=== PATIENT | female | born 1965 | race Caucasian/White ===

== ENCOUNTER → 2020-07-12 01:07 | Outpatient (CLI) | payer OTHER, SELFPAY ==
[2020-07-12 19:48] LABS: SARS-CoV-2 RNA PCR Negative
== END ==
PROVIDERS: PCP Family Medicine; Visit Provider Internal Medicine Gastroenterology
DX: Z01.812 Encounter for preprocedural laboratory examination (principal); Z20.822 Contact with and (suspected) exposure to COVID-19
CPT/HCPCS: C9803; U0003; U0005

== ENCOUNTER 2020-07-15 00:51 | Day surgery (SDC) | payer OTHER, SELFPAY ==
[2020-07-03 08:53] VITALS: BMI 38.2
[2020-07-15 11:45] VITALS: BP 132/90; PULSE 62; RESP 18; TEMP 36.3; O2SAT 100
[2020-07-15] MEDS: LACTATED RINGERS 1,000 ML 150 ML IV CONT (11:52)
[2020-07-15 12:01] LABS: Glucose Point of Care 96 (65-105)
--- NOTE | 2020-07-15 12:02 | SUR.PREOP ---
Patient reports IUD fro 11 years. OK for no urine test per anesthesia.
--- NOTE | 2020-07-15 12:12 | WPDANESEPPF ---
Anes - Initial Pre Proc Eval Procedure: Operation Date: 07/15/20 12:45 Proposed Procedures p Screening Colonoscopy - Thomas Byers MD Date/Time: 07/15/20 12:12 Surgeon: Thomas Byers MD Pre Op Diagnosis: Neoplasm Screening Patient Data Age: 54 Gender: F Height: 5 ft 8 in Weight: 116.5 kg Last Vital Signs Temp 36.3 C L 07/15/20 11:45 Pulse 62 07/15/20 11:45 Resp 18 07/15/20 11:45 BP 132/90 07/15/20 11:45 Pulse Ox 100 07/15/20 11:45 Allergies Allergy/AdvReac Type Severity Reaction Status Date / Time Penicillins Allergy Unknown rash Verified 07/15/20 11:44 cariprazine [From Vraylar] AdvReac Severe sedation Verified 07/15/20 11:44 liraglutide [From Saxenda] AdvReac Intermediate gi Verified 07/15/20 11:44 intolerance Home Medications Medication Instructions Recorded Confirmed Type bupropion HCl 150 mg 24 hr tablet, 150 mg PO QAM #90 tablet 05/24/19 07/15/20 Rx extended release adalimumab 40 mg/0.8 mL See Rx Instructions SUB-Q .COMPLEX 05/30/19 07/15/20 History subcutaneous syringe kit fluoxetine 20 mg capsule 20 mg PO DAILY #90 cap 11/20/19 07/15/20 Rx alprazolam 0.25 mg tablet 0.25 mg PO .tid prn #90 tablet 03/04/20 07/15/20 Rx spironolactone 50 mg tablet See Rx Instructions .ROUTE 05/30/20 07/15/20 Rx .COMPLEX #180 tablet Laboratory Tests 07/15/20 11:49 POC Capillary Glucose 96 mg/dl mg/dl (65-105) Patient hx anesthesia problems: none Family hx anesthesia problems: none PMFSH Past Medical History Medical History Chronic anxiety Depression Diabetes Seropositive rheumatoid arthritis of multiple joints Social History Social History Smoking status: Never smoker Living arrangements: with family Gender identity (if verbalized by the patient): Female Spiritual care concerns: No Anes - Eval Final PreProcedure Day of Procedure 07/15/20 12:12 Patient weight: obese Heart: regular rate and rhythm Lungs: clear to auscultation Airway: Mallampati scale class II Neurological: alert and oriented Last oral intake: >/= 8 hours ASA classification: III Emergent: no Anesthetic plan: proceed Anesthesia type and monitoring: general GIVS and standard monitoring Informed Consent: The patient's anesthetic plan and its attendant risks and benefits were discussed with the patient/family/POA. Questions were solicited and answers provided to the satisfaction of the patient/family/POA.
--- NOTE | 2020-07-15 12:49 | PM.HPGS ---
History of Present Illness History of Present Illness Consent: Risks, benefits, and alternatives have been discussed and questions answered. Patient agrees to proceed with procedure. Chief complaint: Neoplasm Screening Narrative: Annie Ramos is a 54 year old female here for first screening colonoscopy Review of Systems Constitutional: Constitutional: Denies headache(s) and Denies weakness Eyes: Eyes: Denies blurry vision ENT: Reports Normal hearing present, Denies headache(s) and Denies neck pain Cardiovascular: Cardiovascular: Denies chest pain and Denies dyspnea Respiratory: Respiratory: Denies dyspnea Gastrointestinal: Gastrointestinal: Reports no additional gastrointestinal complaints Genitourinary: Genitourinary: Denies dysuria Musculoskeletal: Musculoskeletal: Denies neck pain Integumentary/Breasts: Skin/Breast: Denies dry skin Neurologic: Reports Normal hearing present, Denies headache(s) and Denies weakness Psychiatric: Psychiatric: Denies anxiety Endocrine: Endocrine: Denies change in body appearance Hematologic/Lymphatic: Hematologic/Lymphatic: Denies easy bleeding Allergic/Immunologic: Allergic/Immunologic: Denies urticaria PMFSH Past Medical History Medical History Chronic anxiety Depression Diabetes Seropositive rheumatoid arthritis of multiple joints Social History Social History Smoking status: Never smoker Living arrangements: with family Gender identity (if verbalized by the patient): Female Spiritual care concerns: No Meds Home Medications and Allergies Home Medications Medication Instructions Recorded Confirmed Type bupropion HCl 150 mg 24 hr tablet, 150 mg PO QAM #90 tablet 05/24/19 07/15/20 Rx extended release adalimumab 40 mg/0.8 mL See Rx Instructions SUB-Q .COMPLEX 05/30/19 07/15/20 History subcutaneous syringe kit fluoxetine 20 mg capsule 20 mg PO DAILY #90 cap 11/20/19 07/15/20 Rx alprazolam 0.25 mg tablet 0.25 mg PO .tid prn #90 tablet 03/04/20 07/15/20 Rx spironolactone 50 mg tablet See Rx Instructions .ROUTE 05/30/20 07/15/20 Rx .COMPLEX #180 tablet Allergies Allergy/AdvReac Type Severity Reaction Status Date / Time Penicillins Allergy Unknown rash Verified 07/15/20 11:44 cariprazine [From Vraylar] AdvReac Severe sedation Verified 07/15/20 11:44 liraglutide [From Saxenda] AdvReac Intermediate gi Verified 07/15/20 11:44 intolerance Vital Signs Vital Signs - 24 hr 07/15/20 11:45 Temperature 97.4 F L Pulse Rate 62 Respiratory Rate 18 Blood Pressure 132/90 Pulse Oximetry 100 Exam Const: General: comfortable and no acute distress HENMT: General nose exam: Normal nares present Eyes: General: appearance normal, both eyes and all related structures Neck: Neck: no JVD Resp: Auscultation: clear to auscultation bilaterally Cardio: Rate: regular rate Rhythm: regular rhythm GI: Inspection: non-distended GI Palp: Yes Soft to palpation Skin: General skin exam: normal color Neuro: General: gait normal Speech: normal speech Extrem: General: normal to inspection Psych: Mental Status: mental status grossly normal Assessment and Plan Assessment and plan (1) Colon cancer screening: Code(s): Z12.11 - Encounter for screening for malignant neoplasm of colon Status: Acute Assessment and Plan: proceed with colonoscopy
[2020-07-15 13:15] VITALS: BP 134/63; PULSE 59; RESP 14; O2SAT 99
[2020-07-15 13:25] VITALS: BP 143/71; PULSE 56; RESP 20; O2SAT 98
[2020-07-15 13:35] VITALS: BP 154/84; PULSE 58; RESP 23; O2SAT 99
== END 2020-07-15 13:50 | disposition home or self-care (01) ==
PROVIDERS: PCP Family Medicine; Visit Provider Internal Medicine Gastroenterology
PROC: 0DJD8ZZ Inspection of Lower Intestinal Tract, Via Natural or Artificial Opening Endoscopic (ICD-10-PCS; CPT 45378; principal; 2020-07-15 12:45)
DX: Z12.11 Encounter for screening for malignant neoplasm of colon (principal); K63.5 Polyp of colon; K57.30 Diverticulosis of large intestine without perforation or abscess without bleeding; K64.8 Other hemorrhoids; E11.9 Type 2 diabetes mellitus without complications; F41.8 Other specified anxiety disorders; M05.89 Other rheumatoid arthritis with rheumatoid factor of multiple sites; E66.9 Obesity, unspecified; Z68.39 Body mass index [BMI] 39.0-39.9, adult
CPT/HCPCS: 45385; 82948; 88305; J7120

== ENCOUNTER 2021-11-27 14:03 | Outpatient (CLI) | payer OTHER, SELFPAY ==
--- NOTE | ~2021-11-27 | MM_ITS ---
EXAMINATION: MM screening [facility] BI w [facility] HISTORY: Screening TECHNIQUE: Craniocaudal and mediolateral oblique 3-D tomosynthesis images were obtained and synthetic 2-D images were generated. CAD analysis was submitted and interpreted. COMPARISON: Comparison to multiple prior studies sequentially, with oldest reviewed study dated 02/07. BREAST PARENCHYMAL COMPOSITION: There are scattered areas of fibroglandular density. FINDINGS: There is no evidence of suspicious mass, calcification, or architectural distortion to sugg est malignancy in either breast. There has been no suspicious interval change. IMPRESSION: 1. No mammographic evidence of malignancy. 2. Recommend routine screening mammography in one year. BI-RADS Category 1: Negative Reviewed, dictated and finalized at location A.
== END 2021-11-27 14:04 | disposition home or self-care (01) ==
LOC: ANHIMG 14:05
PROVIDERS: PCP Family Medicine; Visit Provider Family Medicine
DX: Z12.31 Encounter for screening mammogram for malignant neoplasm of breast (principal)
CPT/HCPCS: 77063; 77067

== ENCOUNTER 2022-04-28 12:56 | Outpatient (CLI) | payer OTHER, SELFPAY ==
--- NOTE | 2022-04-28 13:09 | ECHO_ITS ---
Patient Info Name: Annie Ramos Age: 56 years : 1965 Gender: Female Ht: 67 in Wt: 208 lbs BSA: 2.14 m2 HR: 69 bpm BP: 149 / 91 mmHg Heart Rhythm: Sinus Rhythm Technical Quality: Fair Exam Date: 04/28/2022 1:12 PM Exam Location: [facility] Patient Status: Outpatient Admit Date: 04/28/2022 Staff Ordering Physician: Nelly Mancera MD Music Writer: Becky Dai RDCS Attending Provider: Nelly Mancera MD Referring Physician: Fiordaliza CONLEY; Exam Type: CA echo doppler color flow Study Info Indications R01.1 - Cardiac murmur, unspecified Complete two-dimensional, color flow and Doppler transthoracic echocardiogram is performed. Summary 1. Complete two-dimensional, color flow and Doppler transthoracic echocardiogram is performed. 2. Left ventricular chamber dimension is normal. 3. Left ventricular systolic function is normal, estimated at 60-65%. 4. The left ventricular diastolic function is normal. 5. E/e' 9 is minimally elevated. 6. There is mild aortic valve sclerosis. 7. There is mild to moderate aortic valve regurgitation. 8. No pulmonary hypertension, estimated pulmonary arterial systolic pressure is 27 mmHg. Left Ventricle E/e' 9 is minimally elevated. Left ventricular chamber dimension is normal. Left ventricular systolic function is normal, estimated at 60-65%. The left ventricular diastolic function is normal. Right Ventricle Right ventricular systolic function is normal and with normal TAPSE 2.2 cm. Right ventricular chamber dimension is normal. Left Atria Left atrial chamber dimension is normal. Right Atria Right atrial chamber dimension is normal. Aortic Valve The aortic valve is trileaflet. There is mild aortic valve sclerosis. There is no aortic valve stenosis. There is mild to moderate aortic valve regurgitation. Pulmonic Valve There is no pulmonic regurgitation. Mitral Valve There is no mitral valve stenosis. There is no mitral valve regurgitation. Tricuspid Valve There is no tricuspid valve regurgitation. No pulmonary hypertension, estimated pulmonary arterial systolic pressure is 27 mmHg. Pericardium/Pleural There is no pericardial effusion. Inferior Vena Cava Normal inferior vena cava with >50% collapse upon inspiration consistent with normal right atrial pressure, 5 mmHg. Aorta The aortic root size at the sinus of Valsalva is normal. Left Ventricular Outflow Tract Name Value Normal LVOT 2D LVOT Diameter 2.0 cm LVOT Doppler LVOT Peak Gradient 6 mmHg LVOT Mean Gradient 3 mmHg LVOT VTI 24 cm LVOT VTI/AV VTI Ratio 0.8 LVOT Stroke Volume 74 ml LVOT CO 4.9 l/min LVOT CI 2.3 l/min/m2 Pulmonic Valve Name Value Normal
== END 2022-04-28 12:57 | disposition home or self-care (01) ==
LOC: ANHCARD 12:58
PROVIDERS: PCP Family Medicine; Visit Provider Family Medicine
DX: M05.79 Rheumatoid arthritis with rheumatoid factor of multiple sites without organ or systems involvement (principal); R01.1 Cardiac murmur, unspecified; G95.89 Other specified diseases of spinal cord; I35.8 Other nonrheumatic aortic valve disorders
CPT/HCPCS: 93306

== ENCOUNTER 2023-08-15 09:09 | Outpatient (CLI) | payer OTHER, SELFPAY ==
--- NOTE | ~2023-08-15 | MR_ITS ---
MRI of the left shoulder Technique: Axial proton-density fat-sat images, coronal proton density fat-sat and T2 fat-sat images, and sagittal T1-weighted and T2 fat-sat images were acquired. Clinical History: Pain Findings: There is moderate degenerative change at the AC joint, with bony productive change on both sides of the joint. Cortical clavicular, coracoacromial, coracohumeral ligaments appear intact. There is full-thickness tear at the anterior, distal supraspinatus tendon, measuring approximately 1. 1 x 1.1 cm in extent. Infraspinatus tendon is intact, without partial or full-thickness tear. There i s moderate background supraspinatus tendinosis. Subscapularis tendon is intact. Tendon of the long he ad of the biceps is intact. No labral tear identified. Inferior glenohumeral ligament is intact. No degenerative change or effusion of the glenohumeral join t. Small amount of fluid passing from the joint space into the subacromial/subdeltoid bursa. No muscl e atrophy or edema evident. Impression: 1.1 x 1.1 cm full-thickness tear at the anterior, distal supraspinatus tendon. Moderate AC joint degenerative change. Reviewed, dictated and finalized at location . Impression: 1.1 x 1.1 cm full-thickness tear at the anterior, distal supraspinatus tendon. Moderate AC joint degenerative change.
== END 2023-08-15 09:10 ==
LOC: GOSHIMG 09:10
PROVIDERS: PCP Orthopaedic Surgery; Visit Provider Orthopaedic Surgery
DX: M25.512 Pain in left shoulder (principal); S46.812A Strain of other muscles, fascia and tendons at shoulder and upper arm level, left arm, initial encounter
CPT/HCPCS: 73221